=== PATIENT | male | born 1935 | race Caucasian/White ===

== ENCOUNTER 2022-08-06 05:20 | Emergency (ER) | payer MEDICARE, SELFPAY ==
--- NOTE | ~2022-08-06 | CT_ITS ---
EXAMINATION: CT brain wo con DATE: 08/06/2022 05:55 INDICATION: Minor head injury. TECHNIQUE: Computed tomography (CT) of the head was performed without intravenous contrast. The mA wa s adjusted according to patient size. Iterative reconstruction technique was employed. The dose-lengt h product was 681.00 mGy-cm. COMPARISON: None FINDINGS: There are scattered areas of low attenuation in the cerebral white matter, which is within normal limits for the patient's age. There is no intracranial hemorrhage, acute infarction, or abnorm al intracranial mass lesion. The ventricles are normal in size. There are likely changes of ocular le ns replacement surgeries. There are changes of left-sided scleral banding procedure. There is mild mu cosal thickening in the paranasal sinuses. There is a small right mastoid effusion. There is cerumen in the external auditory canals. IMPRESSION: 1. Normal aging brain. Reviewed, dictated and finalized at location A. IMPRESSION: 1. Normal aging brain.
[2022-08-06 05:34] VITALS: BP 151/70; PULSE 58; RESP 20; TEMP 36.8; O2SAT 100
--- NOTE | 2022-08-06 05:34 | ECG_ITS ---
Measurements Intervals Strong Rate: 61 P: 72 W[place]: 195 QRS: 79 QRSD: 125 T: 18 QT: 420 QTc: 425 Interpretive Statements SINUS RHYTHM RIGHT BUNDLE BRANCH BLOCK BASELINE ARTIFACT- I, II ABNORMAL ECG NO PREVIOUS ECG AVAILABLE FOR COMPARISON Electronically Signed On 08-07-2022 8:37:20 CDT by Blaze Macedo D.O.
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
[2022-08-06 05:49] LABS: Basophils Percent Auto 0.6 % (0.2-1.2); Eosinophils Absolute Auto 0.1 K/mm3 (0-0.3); Eosinophils Percent Auto 1.9 % (0-4.4); Hematocrit 35.4 % (42.0-52.0); Hemoglobin 11.4 g/dL (14.0-18.0); Immature Granulocyte Absolute 0.03 K/mm3 (0.00-0.031); Immature Granulocyte Percent A 0.6 % (0-0.5); Lymphocytes Absolute Auto 1.07 K/mm3 (0.9-3.2); Lymphocytes Percent Auto 20.5 % (18.3-44.2); Mean Corpuscular HGB Conc 32.2 g/dl (32-36); Mean Corpuscular Hemoglobin 30.6 pg (26-34); Mean Corpuscular Volume 94.9 fl (80-100); Mean Platelet Volume 9.8 fl (7.4-10.4); Monocytes Absolute Auto 0.5 K/mm3 (0.1-0.6); Monocytes Percent Auto 10.2 % (2.6-8.5); Neutrophils Absolute Auto 3.5 K/mm3 (1.3-6.7); Neutrophils Percent Auto 66.2 % (45.5-73.1); Platelet Count Result 201 k/mm3 (150-375); Red Blood Count 3.73 M/mm3 (4.6-6.20); Red Cell Distribution Width 13.4 % (11.5-14.5); White Blood Count 5.2 K/mm3 (4.5-10.0)
[2022-08-06 05:55] VITALS: BP 159/70; PULSE 65; RESP 18; O2SAT 100
[2022-08-06 06:00] VITALS: BP 155/69; PULSE 59; RESP 20; O2SAT 100
[2022-08-06 06:00] LABS: Anion Gap 5 mmol/L (8-16); Blood Urea Nitrogen 28 mg/dL (9-20); Calcium 8.9 mg/dL (8.4-10.2); Carbon Dioxide 31 mmol/L (22-30); Chloride 104 mmol/L (98-107); Estimated Glomerular Filt Rate > 60; Glucose 99 mg/dL (65-110); Potassium 3.4 mmol/L (3.4-5.0); Sodium 140 mmol/L (137-145)
[2022-08-06 06:15] VITALS: BP 149/69; PULSE 55; RESP 20; O2SAT 100
[2022-08-06 06:43] VITALS: BP 154/71; PULSE 57; RESP 18; O2SAT 100
== END 2022-08-06 07:00 | disposition home or self-care (01) ==
PROVIDERS: Emergency Provider Emergency Medicine; PCP Family Medicine
DX: S50.312A Abrasion of left elbow, initial encounter (principal); F03.90 Unspecified dementia, unspecified severity, without behavioral disturbance, psychotic disturbance, mood disturbance, and anxiety; I45.10 Unspecified right bundle-branch block; W19.XXXA Unspecified fall, initial encounter
CPT/HCPCS: 36415; 70450; 80048; 85025; 93005; 99284

== ENCOUNTER 2022-08-09 07:00 | Inpatient (IN) | payer MEDICARE, SELFPAY ==
--- NOTE | ~2022-08-09 | CT_ITS ---
EXAMINATION: CT brain wo con DATE: 08/09/2022 07:44 INDICATION: Head injury. Dizziness. TECHNIQUE: Computed tomography (CT) of the head was performed without intravenous contrast. The mA wa s adjusted according to patient size. Iterative reconstruction technique was employed. The dose-lengt h product was 681.00 mGy-cm. COMPARISON: Head CT 08/06/2022 FINDINGS: There are scattered areas of low attenuation in the cerebral white matter, which is within normal limits for the patient's age. There is no intracranial hemorrhage, acute infarction, or abnorm al intracranial mass lesion. The ventricles are normal in size. There is mild mucosal thickening in t he paranasal sinuses. There are likely changes of ocular lens replacement surgeries. There are change s of left-sided scleral banding procedure. There is a right mastoid effusion. There is cerumen in the external auditory canals. IMPRESSION: 1. Normal aging brain. Reviewed, dictated and finalized at location A. IMPRESSION: 1. Normal aging brain.
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
--- NOTE | ~2022-08-09 | XR_ITS ---
EXAMINATION: XR ribs LT 2V w CXR 2V DATE: 08/09/2022 08:11 INDICATION: Dizziness and cough. TECHNIQUE: Frontal and lateral views of the chest on 4 radiographs and 2 views on 3 radiographs of th e left ribs were obtained. COMPARISON: None. FINDINGS: CHEST TWO VIEWS: There are airspace opacities at the lung bases, left worse than right. There may be a small left pleural effusion. No pneumothorax. Skinfolds overlie left hemithorax. The heart size is normal. There is electronic implant in left anterior chest wall. LEFT RIBS: There is no rib fracture. IMPRESSION: 1. Airspace opacities at the lung bases, left worse than right, consistent with atelectasis versus pn eumonia. 2. Possible small left pleural effusion. 3. No rib fracture. Reviewed, dictated and finalized at location A. IMPRESSION: 1. Airspace opacities at the lung bases, left worse than right, consistent with atelectasis versus pneumonia. 2. Possible small left pleural effusion. 3. No rib fracture.
--- NOTE | ~2022-08-09 | XR_ITS ---
EXAM: XR shoulder RT min 2V DATE: 08/14/2022 18:00 HISTORY: pain s/p fall . COMPARISON: None available. FINDINGS: Normal mineralization. No fracture or dislocation. No lytic or blastic lesion. Degenerativ e change at the AC joint and glenohumeral joint. No erosion or periosteal change. Soft tissues within normal limits. IMPRESSION: No acute osseous finding in the right shoulder. Reviewed, dictated and finalized at location K.
--- NOTE | ~2022-08-09 | US_ITS ---
EXAMINATION: US venous doppler [facility] DATE: 08/10/2022 10:57 INDICATION: lower extremity edema . TECHNIQUE: Grayscale images without and with compression and Doppler images of the bilateral lower ex tremity veins were obtained. COMPARISON: None FINDINGS: The right common femoral vein, profunda (deep) femoral vein, femoral vein, popliteal vein, peroneal v ein, posterior tibial veins, gastrocnemius vein, and greater saphenous vein are patent. The left common femoral vein, profunda femoral vein, femoral vein, popliteal vein, peroneal vein, pos terior tibial veins, gastrocnemius vein, and greater saphenous vein are patent. IMPRESSION: 1. Patent bilateral lower extremity veins. No evidence of deep venous thrombosis. Reviewed, dictated and finalized at location K. IMPRESSION: 1. Patent bilateral lower extremity veins. No evidence of deep venous thrombos is.
--- NOTE | 2022-08-09 07:02 | ECG_ITS ---
Measurements Intervals [place] Rate: 62 P: 38 AL: 248 QRS: 78 QRSD: 140 T: 25 QT: 441 QTc: 451 Interpretive Statements SINUS RHYTHM WITH FIRST DEGREE AV BLOCK ATRIAL PREMATURE COMPLEX RIGHT BUNDLE BRANCH BLOCK BASELINE ARTIFACT- I, II, III, AVR, AVL, AVF, V1-V3 ABNORMAL ECG COMPARED TO ECG 08/06/2022 05:34:27 FIRST DEGREE AV BLOCK NOW PRESENT Electronically Signed On 08-09-2022 7:09:14 CDT by Blaze Macedo D.O.
[2022-08-09 07:03] VITALS: BP 171/86; PULSE 59; RESP 18; TEMP 36.5; O2SAT 97
--- NOTE | 2022-08-09 07:12 | ED.GENADULT ---
HPI - General Adult General Chief complaint: Dizziness Stated complaint: fall, dizzy History of Present Illness HPI narrative: 86-year-old male presenting to the emergency department for dizziness and a ground-level fall. Patient does have frequent falls. Patient does have dementia at baseline. Patient states he had just gotten out of bed and was walking and found him sitting on the floor. Patient states he did fall but is unsure if he hit his head. Patient does complain of left rib pain. Patient denies any other pain or complaint. Related Data Home Medications Medication Instructions Recorded Confirmed amlodipine 2.5 mg tablet 2.5 mg PO DAILY 08/09/22 08/09/22 aspirin 81 mg chewable tablet 80 mg PO DAILY 08/09/22 08/09/22 losartan 100 100.25 tablet PO DAILY 08/09/22 08/09/22 mg-hydrochlorothiazide 12.5 mg tablet simvastatin 80 mg tablet 40 mg PO DAILY 08/09/22 08/09/22 Allergies Allergy/AdvReac Type Severity Reaction Status Date / Time No Known Allergies Allergy Verified 08/09/22 07:26 Review of Systems Review of Systems: CONSTITUTIONAL: Denies fever, chills, or sweats. EYES: Denies visual changes, redness, or discharge. ENT: Denies rhinorrhea, congestion, sore throat, or otalgia. CARDIOVASCULAR: Left-sided chest wall pain RESPIRATORY: Denies cough or dyspnea. GASTROINTESTINAL: Denies abdominal pain, nausea, vomiting, or diarrhea. GENITOURINARY: Denies dysuria or hematuria. SKIN: Denies rash or itching. MUSCULOSKELETAL: Denies back pain, joint pain, or myalgia. NEUROLOGIC: At neuro baseline [facility] Social History Social History Additional smoking assessment comments: unknown Spiritual care concerns: No Exam Narrative: APPEARANCE: Well appearing, no pain, no distress, well-nourished. HEAD: normocephalic, atraumatic. EYES: PERRLA/EOMI, conjunctivae clear. NOSE: Normal no drainage EARS:TMS clear with good light reflex. THROAT: Pharynx clear, no exudate. NECK: Supple. No adenopathy, no masses. RESPIRATORY: Airway patent, respirations nonlabored. Clear to auscultation bilaterally, no rales, rhonchi, wheezing. CARDIOVASCULAR: Regular rate and rhythm without murmurs rubs or gallops. ABDOMINAL: Soft, nontender, nondistended, normal bowel sounds MUSCULOSKELETAL: Moves all extremities. Strength/ROM intact, No edema, No calf tenderness. NEURO: Alert. Cranial nerves II through XII intact. Grossly intact SKIN: Warm, dry. Normal Color Course Course Emergency Course: X-ray was concerning for pneumonia. No evidence of a rib fracture. Patient's pain may be secondary to an underlying pneumonia. Due to patient's altered mental status patient was started on antibiotics and admitted to the hospital. Case was discussed with hospitalist and patient was accepted admission. Vital Signs Vital signs: Vital Signs Temperature 97.7 F 08/09/22 07:03 Pulse Rate 59 L 08/09/22 07:03 Respiratory Rate 18 08/09/22 07:03 Blood Pressure 171/86 H 08/09/22 07:03 Pulse Oximetry 97 08/09/22 07:03 Temperature 98.0 F 08/09/22 13:49 Pulse Rate 53 L 08/09/22 13:49 Respiratory Rate 16 08/09/22 13:49 Blood Pressure 168/61 H 08/09/22 13:49 Pulse Oximetry 100 08/09/22 13:49 Medical Decision Making Vital Signs Vital Signs: Vital Signs Temperature 97.7 F 08/09/22 07:03 Pulse Rate 59 L 08/09/22 07:03 Respiratory Rate 18 08/09/22 07:03 Blood Pressure 171/86 H 08/09/22 07:03 Pulse Oximetry 97 08/09/22 07:03 Temperature 98.0 F 08/09/22 13:49 Pulse Rate 53 L 08/09/22 13:49 Respiratory Rate 16 08/09/22 13:49 Blood Pressure 168/61 H 08/09/22 13:49 Pulse Oximetry 100 08/09/22 13:49 Lab Data Lab results reviewed: Yes I reviewed the patient's lab results. Result diagrams: 08/09/22 07:10 08/09/22 07:10 Labs: Lab Results 08/09/22 08/09/22 08/09/22 Range/Units 07:10 07:10 07:29 WBC 5.3 (4.5-10.0) K/mm3 RBC 3.87
[2022-08-09 07:19] LABS: Basophils Percent Auto 0.6 % (0.2-1.2); Eosinophils Absolute Auto 0.1 K/mm3 (0-0.3); Eosinophils Percent Auto 1.9 % (0-4.4); Hematocrit 36.3 % (42.0-52.0); Hemoglobin 11.9 g/dL (14.0-18.0); Immature Granulocyte Absolute 0.03 K/mm3 (0.00-0.031); Immature Granulocyte Percent A 0.6 % (0-0.5); Lymphocytes Absolute Auto 0.72 K/mm3 (0.9-3.2); Lymphocytes Percent Auto 13.5 % (18.3-44.2); Mean Corpuscular HGB Conc 32.8 g/dl (32-36); Mean Corpuscular Hemoglobin 30.7 pg (26-34); Mean Corpuscular Volume 93.8 fl (80-100); Mean Platelet Volume 9.9 fl (7.4-10.4); Monocytes Absolute Auto 0.5 K/mm3 (0.1-0.6); Monocytes Percent Auto 9.2 % (2.6-8.5); Neutrophils Percent Auto 74.2 % (45.5-73.1); Platelet Count Result 192 k/mm3 (150-375); Red Blood Count 3.87 M/mm3 (4.6-6.20); Red Cell Distribution Width 13.4 % (11.5-14.5); White Blood Count 5.3 K/mm3 (4.5-10.0)
[2022-08-09 07:31] LABS: Alanine Aminotransferase 18 U/L (6-50); Albumin Level 3.3 g/dL (3.5-5.1); Alkaline Phosphatase 72 U/L (38-126); Anion Gap 6 mmol/L (8-16); Aspartate Amino Transferase 23 U/L (17-59); Bilirubin,Total 0.5 mg/dL (0.2-1.3); Blood Urea Nitrogen 25 mg/dL (9-20); Carbon Dioxide 27 mmol/L (22-30); Chloride 107 mmol/L (98-107); Estimated Glomerular Filt Rate > 60; Glucose 90 mg/dL (65-110); Potassium 3.3 mmol/L (3.4-5.0); Sodium 140 mmol/L (137-145)
[2022-08-09] MEDS: POTASSIUM CHLORIDE 20 MEQ PACKET (FOR LIQUID) 40 MEQ PO (08:04)
[2022-08-09 08:18] LABS: SARS-CoV-2 RNA PCR Negative
[2022-08-09 08:37] LABS: Appearance Urine Clear (Clear); Bilirubin Urine Negative (Negative); Blood Urine 1+ (Negative); Color Urine Yellow (Yellow); Glucose Urine UA Negative (Negative); Ketones Urine Negative (Negative); Leukocyte Esterase Ur Negative LEU/UL (Negative); Nitrate Urine Negative (Negative); Protein Urine Negative (Negative)
[2022-08-09 08:57] VITALS: BP 173/80; PULSE 55
[2022-08-09 08:58] VITALS: BP 176/68; BP 176/75; PULSE 57; PULSE 71; RESP 18; O2SAT 98
--- NOTE | 2022-08-09 08:58 | PC.NURSE ---
Patient refusing to swallow potassium in water, spitting out medications and holding in mouth without swallowing. patient's reports Sometimes he is difficult, but he can swallow.
[2022-08-09 09:03] LABS: Mucus Urine Rare /lpf; Squamous Epithelial Cell Urine Rare /hpf (Few); WBC Urine 0-3 /hpf
[2022-08-09 09:04] LABS: Add Urine Microscopic? YES
[2022-08-09 10:38] VITALS: BP 160/81; PULSE 60; RESP 18; O2SAT 98
--- NOTE | 2022-08-09 11:12 | PCOTNOTE ---
Attempted to see pt. for occupational therapy evaluation. Per nursing hold evaluation until later time, ad pt. just arrived on floor and is significantly confused. Spoke with who agreed.Will follow.
--- NOTE | 2022-08-09 13:15 | PC.NURSE ---
This patient, Jackson Live, was admitted to Medical Room 345-01. Patient/family oriented to hospital policies and general routines including ID bracelet, bed and alarms, visiting hours, pain management, procedures, bathroom and other care routines, personal items, smoking policy, room service/diet, and visiting hours. Information on how to activate the Rapid Response Team has been discussed. Patient/Family are encouraged to report perceived risks to care and to ask questions if they do not understand what they are told or what they should do.
[2022-08-09 13:49] VITALS: BP 168/61; PULSE 53; RESP 16; TEMP 36.7; O2SAT 100
--- NOTE | 2022-08-09 18:40 | PM.IMHP ---
H&P: HPI History of Present Illness Date/Time: 08/09/22 18:40 Chief Complaint: recurrent falls Narrative: this is an 86-year-old male who presents to the ED after dizziness and ground level fall. He has a history of recurrent fall and was recently in the ER for the similar situation. He is a poor historian has an underlying dementia and not able to describe history of present illness. According to the medical record he had gotten out of the bed and was walking when his found him sitting on the floor. It is unclear whether he hit his head or not. He complained of left rib pain. He denies any other complaints currently. He denies any chest pain or shortness of breath. Workup had revealed some opacities in a chest x-ray urine had some blood otherwise negative for urine infection. When asked she does endorse he has cough however this is unreliable. His family is not at bedside currently given recurrent fall history is admitted for further evaluation and management and possibly placement due to his severe underlying dementia. Review of Systems Review of Systems: ROS unobtainable: Yes unobtainable due to medical condition and unobtainable due to mental status PMFSH Social History Social History Additional smoking assessment comments: unknown Spiritual care concerns: No Meds Home Medications and Allergies Home Medications Medication Instructions Recorded Confirmed Type amlodipine 2.5 mg tablet 2.5 mg PO DAILY 08/09/22 08/09/22 History aspirin 81 mg chewable tablet 80 mg PO DAILY 08/09/22 08/09/22 History losartan 100 100.25 tablet PO DAILY 08/09/22 08/09/22 History mg-hydrochlorothiazide 12.5 mg tablet simvastatin 80 mg tablet 40 mg PO DAILY 08/09/22 08/09/22 History Allergies Allergy/AdvReac Type Severity Reaction Status Date / Time No Known Allergies Allergy Verified 08/09/22 07:26 Vital Signs Vital Signs - 24 hr 08/09/22 07:03 08/09/22 07:03 08/09/22 08:57 Temperature 97.7 F Pulse Rate 59 L 59 L 55 L Respiratory Rate 18 Blood Pressure 171/86 H 173/80 H Pulse Oximetry 97 08/09/22 08:58 08/09/22 08:58 08/09/22 10:38 Temperature Pulse Rate 71 57 L 60 Respiratory Rate 18 18 Blood Pressure 176/68 H 176/75 H 160/81 H Pulse Oximetry 98 98 08/09/22 13:49 Temperature 98.0 F Pulse Rate 53 L Respiratory Rate 16 Blood Pressure 168/61 H Pulse Oximetry 100 Exam Narrative: APPEARANCE: Well appearing, no pain, no distress, well-nourished. HEAD: normocephalic, atraumatic. EYES: PERRLA/EOMI, conjunctivae clear. NOSE: Normal no drainage THROAT: Pharynx clear, no exudate. NECK: Supple. No adenopathy, no masses. RESPIRATORY: Airway patent, respirations nonlabored. Clear to auscultation bilaterally, no rales, rhonchi, wheezing. CARDIOVASCULAR: Regular rate and rhythm without murmurs rubs or gallops. ABDOMINAL: Soft, nontender, nondistended, normal bowel sounds MUSCULOSKELETAL: Moves all extremities. Strength/ROM intact, Bilateral lower extremity edema noted pitting, No calf tenderness. NEURO: Alert. oriented to self but not to time and place. Cranial nerves II through XII intact.? Grossly intact SKIN: Warm, dry. Normal Color H&P: Results Labs Labs: Short CBC 08/09/22 Range/Units 07:10 WBC 5.3 (4.5-10.0) K/mm3 Hgb 11.9 L (14.0-18.0) g/dL Hct 36.3 L (42.0-52.0) % Plt Count 192 (150-375) k/mm3 BMP 08/09/22 07:10 Sodium 140 Potassium 3.3 L Chloride 107 Carbon Dioxide 27 BUN 25 H Creatinine 0.80 Glucose 90 Calcium 8.0 L Liver Function 08/09/22 Range/Units 07:10 Total Bilirubin 0.5 (0.2-1.3) mg/dL AST 23 (17-59) U/L ALT 18 (6-50) U/L Alkaline Phosphatase 72 (38-126) U/L Albumin 3.3 L (3.5-5.1) g/dL Urine 08/09/22 Range/Units 08:24 Urine Color Yellow (Yellow) Urine Appearance Clear (Clear) Urine pH 7.0 (5.0-9.0) Ur Specific [place] 1.020 (1.001-1.035) Urine Protein Negat
[2022-08-09 19:28] LABS: Creatine Kinase 79 U/L (55-170)
[2022-08-09 20:58] VITALS: BP 121/55; PULSE 64; RESP 16; TEMP 36.7; O2SAT 97
[2022-08-10 06:00] VITALS: BP 170/73; PULSE 60; RESP 18; TEMP 36.9; O2SAT 99
[2022-08-10] MEDS: amLODIPine BESYLATE 2.5 MG TABLET PO (09:16)
[2022-08-10] MEDS: ENOXAPARIN 40 MG/0.4 ML SYRINGE SUB-Q (09:16)
[2022-08-10] MEDS: SIMVASTATIN 20 MG TABLET 40 MG PO (09:17)
[2022-08-10] MEDS: ASPIRIN 81 MG CHEWABLE TABLET PO (09:17)
[2022-08-10] MEDS: LOSARTAN POTASSIUM 100 MG TABLET PO (09:17)
[2022-08-10] MEDS: hydroCHLOROthiazide 12.5 MG CAPSULE PO (09:17)
--- NOTE | 2022-08-10 14:42 | PM.IMPN ---
Progress Note: A&P Assessment and Plan (1) Pneumonia: Code(s): J18.9 - Pneumonia, unspecified organism Status: Acute (2) Pain in rib: Code(s): R07.81 - Pleurodynia Status: Acute (3) Encephalopathy: Code(s): G93.40 - Encephalopathy, unspecified Status: Acute (4) Recurrent falls: Code(s): R29.6 - Repeated falls Status: Acute (5) Hypertension: Code(s): I10 - Essential (primary) hypertension Status: Acute (6) Hyperlipidemia: Code(s): E78.5 - Hyperlipidemia, unspecified Status: Acute Plan # acute encephalopathy unclear baseline but he has severe dementia at baseline. CT head with normal aging. Does have pneumonia. WBC count is normal. Continue IV antibiotics and treatment , likely metabolic encephalopathy # bilateral pneumonia IV ceftriaxone and azithromycin pancultured in the ER. Cultures no growth to date # recurrent falls PT OT to see likely needs placement # bilateral lower extremity edema likely venous will check venous duplex to rule out DVT # severe dementia # hypertension resume home medication # hyperlipidemia statin # code status full code # DVT prophylaxis Lovenox Subjective Date/time seen: 08/10/22 14:42 Interval history: HPI:?this is an 86-year-old male who presents to the ED after dizziness and ground level fall.? He has a history of recurrent fall and was recently in the ER for the similar situation.? He is a poor historian has an underlying dementia and not able to describe history of present illness.? According to the medical record he had gotten out of the bed and was walking when his found him sitting on the floor.? It is unclear whether he hit his head or not.? He complained of left rib pain.? He denies any other complaints currently.? He denies any chest pain or shortness of breath.? Workup had revealed some opacities in a chest x-ray urine had some blood otherwise negative for urine infection.? When asked she does endorse he has cough however this is unreliable.? His family is not at bedside currently given recurrent fall history is admitted for further evaluation and management and possibly placement due to his severe underlying dementia. 08/10/2022 no overnight events. He seemed confused. Does not remember me from yesterday. Denies any new complaint. Review of Systems Review of Systems: ROS unobtainable: Yes unobtainable due to mental status Exam Narrative: APPEARANCE: Well appearing, no pain, no distress, well-nourished. HEAD: normocephalic, atraumatic. EYES: PERRLA/EOMI, conjunctivae clear. NOSE: Normal no drainage THROAT: Pharynx clear, no exudate. NECK: Supple. No adenopathy, no masses. RESPIRATORY: Airway patent, respirations nonlabored. Clear to auscultation bilaterally, no rales, rhonchi, wheezing. CARDIOVASCULAR: Regular rate and rhythm without murmurs rubs or gallops. ABDOMINAL: Soft, nontender, nondistended, normal bowel sounds MUSCULOSKELETAL: Moves all extremities. Strength/ROM intact, Bilateral lower extremity edema noted pitting, No calf tenderness. NEURO: Alert. Confused looking, oriented to self but not to time and place. Cranial nerves II through XII intact.? Grossly intact SKIN: Warm, dry. Normal Color Objective Data Vital Signs Vital Signs: Vital Signs - 24 hr 08/09/22 20:32 08/09/22 20:58 08/10/22 06:00 Temperature 98.1 F 98.4 F Pulse Rate 64 60 Respiratory Rate 16 18 Blood Pressure 121/55 L 170/73 H Pulse Oximetry 97 99 Oxygen Delivery Room Air 08/10/22 10:58 08/10/22 13:07 Temperature Pulse Rate Respiratory Rate Blood Pressure Pulse Oximetry Oxygen Delivery Room Air Room Air Intake/Output Intake/Output: Intake & Output 08/07/22 08/08/22 08/09/22 08/10/22 23:59 23:59 23:59 23:59 Intake Total 1020 480 Output Total 400 Balance 620 480 Meds/Results Medications: Active Medications Generic Name Dose Route Start Last Admin Trade Nam
[2022-08-10 16:28] LABS: Basophils Percent Auto 0.4 % (0.2-1.2); Eosinophils Absolute Auto 0.2 K/mm3 (0-0.3); Eosinophils Percent Auto 3.2 % (0-4.4); Hematocrit 37.5 % (42.0-52.0); Immature Granulocyte Absolute 0.01 K/mm3 (0.00-0.031); Immature Granulocyte Percent A 0.2 % (0-0.5); Lymphocytes Absolute Auto 1.14 K/mm3 (0.9-3.2); Lymphocytes Percent Auto 21.6 % (18.3-44.2); Mean Corpuscular Hemoglobin 30.3 pg (26-34); Mean Corpuscular Volume 94.7 fl (80-100); Mean Platelet Volume 9.8 fl (7.4-10.4); Monocytes Absolute Auto 0.6 K/mm3 (0.1-0.6); Monocytes Percent Auto 11.7 % (2.6-8.5); Neutrophils Absolute Auto 3.3 K/mm3 (1.3-6.7); Neutrophils Percent Auto 62.9 % (45.5-73.1); Platelet Count Result 198 k/mm3 (150-375); Red Blood Count 3.96 M/mm3 (4.6-6.20); Red Cell Distribution Width 13.2 % (11.5-14.5); White Blood Count 5.3 K/mm3 (4.5-10.0)
[2022-08-10 16:42] LABS: Alanine Aminotransferase 18 U/L (6-50); Albumin Level 3.4 g/dL (3.5-5.1); Alkaline Phosphatase 74 U/L (38-126); Anion Gap 8 mmol/L (8-16); Aspartate Amino Transferase 28 U/L (17-59); Bilirubin,Total 0.8 mg/dL (0.2-1.3); Blood Urea Nitrogen 19 mg/dL (9-20); Calcium 8.9 mg/dL (8.4-10.2); Carbon Dioxide 30 mmol/L (22-30); Chloride 102 mmol/L (98-107); Estimated Glomerular Filt Rate > 60; Glucose 95 mg/dL (65-110); Potassium 3.7 mmol/L (3.4-5.0); Sodium 140 mmol/L (137-145)
[2022-08-10 20:24] VITALS: BP 133/71; PULSE 68; RESP 20; TEMP 36.8; O2SAT 98
[2022-08-11 05:38] VITALS: BP 121/61; PULSE 72; RESP 20; TEMP 36.7; O2SAT 97
[2022-08-11 08:27] LABS: Basophils Absolute Auto 0.1 K/mm3 (0.0-0.1); Basophils Percent Auto 0.7 % (0.2-1.2); Eosinophils Absolute Auto 0.1 K/mm3 (0-0.3); Hemoglobin 13.3 g/dL (14.0-18.0); Immature Granulocyte Absolute 0.02 K/mm3 (0.00-0.031); Immature Granulocyte Percent A 0.3 % (0-0.5); Lymphocytes Percent Auto 19.6 % (18.3-44.2); Mean Corpuscular HGB Conc 34.1 g/dl (32-36); Mean Corpuscular Hemoglobin 31.1 pg (26-34); Mean Corpuscular Volume 91.1 fl (80-100); Monocytes Absolute Auto 0.7 K/mm3 (0.1-0.6); Monocytes Percent Auto 9.6 % (2.6-8.5); Neutrophils Absolute Auto 4.9 K/mm3 (1.3-6.7); Neutrophils Percent Auto 68.8 % (45.5-73.1); Platelet Count Result 252 k/mm3 (150-375); Red Blood Count 4.28 M/mm3 (4.6-6.20); Red Cell Distribution Width 13.2 % (11.5-14.5); White Blood Count 7.2 K/mm3 (4.5-10.0)
[2022-08-11 08:39] LABS: Alanine Aminotransferase 21 U/L (6-50); Albumin Level 4.1 g/dL (3.5-5.1); Alkaline Phosphatase 79 U/L (38-126); Anion Gap 12 mmol/L (8-16); Aspartate Amino Transferase 34 U/L (17-59); Blood Urea Nitrogen 18 mg/dL (9-20); Carbon Dioxide 28 mmol/L (22-30); Chloride 102 mmol/L (98-107); Estimated Glomerular Filt Rate > 60; Glucose 104 mg/dL (65-110); Magnesium 1.9 mg/dL (1.6-2.3); Potassium 4.5 mmol/L (3.4-5.0); Sodium 142 mmol/L (137-145)
[2022-08-11] MEDS: hydroCHLOROthiazide 12.5 MG CAPSULE PO (09:40)
[2022-08-11] MEDS: ENOXAPARIN 40 MG/0.4 ML SYRINGE SUB-Q (09:40)
[2022-08-11] MEDS: amLODIPine BESYLATE 2.5 MG TABLET PO (09:40)
[2022-08-11] MEDS: LOSARTAN POTASSIUM 100 MG TABLET PO (09:40)
[2022-08-11] MEDS: SIMVASTATIN 20 MG TABLET 40 MG PO (09:41)
[2022-08-11] MEDS: ASPIRIN 81 MG CHEWABLE TABLET PO (09:41)
[2022-08-11 13:00] VITALS: BP 120/83; PULSE 84; RESP 18; TEMP 36.3; O2SAT 99
--- NOTE | 2022-08-11 14:48 | PM.IMPN ---
Progress Note: A&P Assessment and Plan (1) Pneumonia: Code(s): J18.9 - Pneumonia, unspecified organism Status: Acute (2) Pain in rib: Code(s): R07.81 - Pleurodynia Status: Acute (3) Encephalopathy: Code(s): G93.40 - Encephalopathy, unspecified Status: Acute (4) Recurrent falls: Code(s): R29.6 - Repeated falls Status: Acute (5) Hypertension: Code(s): I10 - Essential (primary) hypertension Status: Acute (6) Hyperlipidemia: Code(s): E78.5 - Hyperlipidemia, unspecified Status: Acute Plan # acute encephalopathy unclear baseline but he has severe dementia at baseline. CT head with normal aging. Does have pneumonia. WBC count is normal. Continue IV antibiotics and treatment , likely metabolic encephalopathy. Check brain MRI and EEG. Will add Zyprexa diet this at night. Maintain sleep-wake cycle # bilateral pneumonia IV ceftriaxone and azithromycin pancultured in the ER. Cultures no growth to date # recurrent falls PT OT to see likely needs placement # bilateral lower extremity edema likely venous Insufficiency. Venous duplex negative for DVT . # severe dementia # hypertension resume home medication # hyperlipidemia statin # code status full code # DVT prophylaxis Lovenox Subjective Date/time seen: 08/11/22 14:48 Interval history: HPI:?this is an 86-year-old male who presents to the ED after dizziness and ground level fall.? He has a history of recurrent fall and was recently in the ER for the similar situation.? He is a poor historian has an underlying dementia and not able to describe history of present illness.? According to the medical record he had gotten out of the bed and was walking when his found him sitting on the floor.? It is unclear whether he hit his head or not.? He complained of left rib pain.? He denies any other complaints currently.? He denies any chest pain or shortness of breath.? Workup had revealed some opacities in a chest x-ray urine had some blood otherwise negative for urine infection.? When asked she does endorse he has cough however this is unreliable.? His family is not at bedside currently given recurrent fall history is admitted for further evaluation and management and possibly placement due to his severe underlying dementia. 08/10/2022 no overnight events. He seemed confused. Does not remember me from yesterday. Denies any new complaint. 08/11/2022 overnight events noted with confusion ongoing. at bedside discussed with her. Ongoing confusion as the norm for him. Was able to do his ADLs. Currently not able to comprehend to be able to do any of those activities. Review of Systems Review of Systems: ROS unobtainable: Yes unobtainable due to mental status Exam Narrative: APPEARANCE: Well appearing, no pain, no distress, well-nourished. HEAD: normocephalic, atraumatic. EYES: PERRLA/EOMI, conjunctivae clear. NOSE: Normal no drainage THROAT: Pharynx clear, no exudate. NECK: Supple. No adenopathy, no masses. RESPIRATORY: Airway patent, respirations nonlabored. Clear to auscultation bilaterally, no rales, rhonchi, wheezing. CARDIOVASCULAR: Regular rate and rhythm without murmurs rubs or gallops. ABDOMINAL: Soft, nontender, nondistended, normal bowel sounds MUSCULOSKELETAL: Moves all extremities. Strength/ROM intact, Bilateral lower extremity edema noted pitting, No calf tenderness. NEURO: Alert. Confused , oriented to self but not to time and place. Cranial nerves II through XII intact.? Grossly intact SKIN: Warm, dry. Normal Color Objective Data Vital Signs Vital Signs: Vital Signs - 24 hr 08/10/22 20:22 08/10/22 20:24 08/11/22 05:38 Temperature 98.3 F 98.1 F Pulse Rate 68 72 Respiratory Rate 20 20 Blood Pressure 133/71 121/61 Pulse Oximetry 98 97 Oxygen Delivery Room Air 08/11/22 09:45 08/11/22 13:00 Temperature 97.3 F L Pulse Rate 84 Respiratory Rate 18 Blood Pressure 1
[2022-08-11 19:40] VITALS: BP 154/72; PULSE 70; RESP 20; TEMP 36.4; O2SAT 95
[2022-08-11] MEDS: OLANZapine DISPERTAB 5 MG PO (21:54)
[2022-08-12 05:51] VITALS: BP 144/79; PULSE 77; RESP 20; TEMP 36.4; O2SAT 94
[2022-08-12] MEDS: ENOXAPARIN 40 MG/0.4 ML SYRINGE SUB-Q (09:40)
[2022-08-12] MEDS: amLODIPine BESYLATE 2.5 MG TABLET PO (09:41)
[2022-08-12] MEDS: LOSARTAN POTASSIUM 100 MG TABLET PO (09:41)
[2022-08-12] MEDS: hydroCHLOROthiazide 12.5 MG CAPSULE PO (09:41)
[2022-08-12] MEDS: SIMVASTATIN 20 MG TABLET 40 MG PO (09:41)
[2022-08-12] MEDS: ASPIRIN 81 MG CHEWABLE TABLET PO (09:41)
--- NOTE | 2022-08-12 12:55 | PM.IMPN ---
Progress Note: A&P Assessment and Plan (1) Pneumonia: Code(s): J18.9 - Pneumonia, unspecified organism Status: Acute (2) Pain in rib: Code(s): R07.81 - Pleurodynia Status: Acute (3) Encephalopathy: Code(s): G93.40 - Encephalopathy, unspecified Status: Acute (4) Recurrent falls: Code(s): R29.6 - Repeated falls Status: Acute (5) Hypertension: Code(s): I10 - Essential (primary) hypertension Status: Acute (6) Hyperlipidemia: Code(s): E78.5 - Hyperlipidemia, unspecified Status: Acute Plan # acute encephalopathy unclear baseline but he has severe dementia at baseline. CT head with normal aging. Does have pneumonia. WBC count is normal. Continue IV antibiotics and treatment , likely metabolic encephalopathy. Check brain MRI and EEG. Added Zyprexa zydis at night. Maintain sleep-wake cycle # bilateral pneumonia IV ceftriaxone and azithromycin pancultured in the ER. Cultures no growth to date # recurrent falls PT OT to see likely needs placement # bilateral lower extremity edema likely venous Insufficiency. Venous duplex negative for DVT . # severe dementia # hypertension resume home medication # hyperlipidemia statin # code status full code # DVT prophylaxis Lovenox # disposition: needs placement however wants to take him back home. May need home health at discharge if stable will plan for discharge in the morning Subjective Date/time seen: 08/12/22 12:55 Interval history: HPI:?this is an 86-year-old male who presents to the ED after dizziness and ground level fall.? He has a history of recurrent fall and was recently in the ER for the similar situation.? He is a poor historian has an underlying dementia and not able to describe history of present illness.? According to the medical record he had gotten out of the bed and was walking when his found him sitting on the floor.? It is unclear whether he hit his head or not.? He complained of left rib pain.? He denies any other complaints currently.? He denies any chest pain or shortness of breath.? Workup had revealed some opacities in a chest x-ray urine had some blood otherwise negative for urine infection.? When asked she does endorse he has cough however this is unreliable.? His family is not at bedside currently given recurrent fall history is admitted for further evaluation and management and possibly placement due to his severe underlying dementia. 08/10/2022 no overnight events. He seemed confused. Does not remember me from yesterday. Denies any new complaint. 08/11/2022 overnight events noted with confusion ongoing. at bedside discussed with her. Ongoing confusion as the norm for him. Was able to do his ADLs. Currently not able to comprehend to be able to do any of those activities. 08/12/2022 slept overnight with Zyprexa. Looks better less confused however dementia and memory loss persist at his baseline. Work with therapy this morning discussed with the nursing staff. Review of Systems Review of Systems: ROS unobtainable: Yes unobtainable due to mental status Exam Narrative: APPEARANCE: Well appearing, no pain, no distress, well-nourished. HEAD: normocephalic, atraumatic. EYES: PERRLA/EOMI, conjunctivae clear. NOSE: Normal no drainage THROAT: Pharynx clear, no exudate. NECK: Supple. No adenopathy, no masses. RESPIRATORY: Airway patent, respirations nonlabored. Clear to auscultation bilaterally, no rales, rhonchi, wheezing. CARDIOVASCULAR: Regular rate and rhythm without murmurs rubs or gallops. ABDOMINAL: Soft, nontender, nondistended, normal bowel sounds MUSCULOSKELETAL: Moves all extremities. Strength/ROM intact, Bilateral lower extremity edema noted pitting, No calf tenderness. NEURO: Alert. Confused , oriented to self but not to time and place. Cranial nerves II through XII intact.? Grossly intact SKIN: Warm, dry. Normal Color Objective Data Vital Signs Vital
--- NOTE | 2022-08-12 13:37 | PCOTNOTE ---
Patient having EKG, then going for test. Patient not seen for OT this date.
[2022-08-12 15:56] VITALS: BP 149/63; PULSE 50; RESP 16; TEMP 36.4; O2SAT 97
[2022-08-12 20:00] VITALS: PULSE 50; RESP 16; O2SAT 97
[2022-08-12] MEDS: OLANZapine 2.5 MG TABLET PO (20:13)
[2022-08-12 22:00] VITALS: BP 120/65; PULSE 73; RESP 18; TEMP 36.9; O2SAT 98
[2022-08-13 05:29] LABS: Basophils Percent Auto 0.7 % (0.2-1.2); Eosinophils Absolute Auto 0.4 K/mm3 (0-0.3); Eosinophils Percent Auto 6.4 % (0-4.4); Hematocrit 40.7 % (42.0-52.0); Hemoglobin 13.5 g/dL (14.0-18.0); Immature Granulocyte Absolute 0.02 K/mm3 (0.00-0.031); Immature Granulocyte Percent A 0.3 % (0-0.5); Lymphocytes Absolute Auto 1.45 K/mm3 (0.9-3.2); Lymphocytes Percent Auto 23.8 % (18.3-44.2); Mean Corpuscular HGB Conc 33.2 g/dl (32-36); Mean Corpuscular Hemoglobin 30.3 pg (26-34); Mean Corpuscular Volume 91.3 fl (80-100); Mean Platelet Volume 9.6 fl (7.4-10.4); Monocytes Absolute Auto 0.7 K/mm3 (0.1-0.6); Monocytes Percent Auto 11.2 % (2.6-8.5); Neutrophils Absolute Auto 3.5 K/mm3 (1.3-6.7); Neutrophils Percent Auto 57.6 % (45.5-73.1); Platelet Count Result 241 k/mm3 (150-375); Red Blood Count 4.46 M/mm3 (4.6-6.20); Red Cell Distribution Width 12.9 % (11.5-14.5); White Blood Count 6.1 K/mm3 (4.5-10.0)
[2022-08-13 05:43] LABS: Alanine Aminotransferase 22 U/L (6-50); Albumin Level 3.8 g/dL (3.5-5.1); Alkaline Phosphatase 80 U/L (38-126); Anion Gap 12 mmol/L (8-16); Aspartate Amino Transferase 38 U/L (17-59); Bilirubin,Total 0.7 mg/dL (0.2-1.3); Blood Urea Nitrogen 20 mg/dL (9-20); Carbon Dioxide 31 mmol/L (22-30); Chloride 101 mmol/L (98-107); Estimated Glomerular Filt Rate > 60; Glucose 98 mg/dL (65-110); Magnesium 2.1 mg/dL (1.6-2.3); Potassium 3.8 mmol/L (3.4-5.0); Sodium 144 mmol/L (137-145)
--- NOTE | 2022-08-13 09:07 | PCPTNOTE ---
Attempted to see patient for PT at this time, however unable to see patient. Patient seemed agitated and refused to work with therapy. Patient very confused and reported he was tied up in a field, informed patient he is at the hospital and in bed. Patient continued to seem agitated and confused. Patient not appropriate for therapy at this time.
--- NOTE | 2022-08-13 09:30 | WPDNEUROLOGY ---
Neurology EEG Report General Information Date of Study: 08/12/22 TEST eeg DIAGNOSIS Dementia with confusion CONDITION OF RECORDING drowsy and sleep EEG NUMBER [id number] CLINICAL HISTORY patient confused and unable to give any history EEG DESCRIPTION background rhythm consists of low-voltage 8 to 10 hertz per 2nd alpha posteriorly for very brief periods admixed with low-voltage 15 to 18 hertz per 2nd beta and intermittent 6 to 7 hertz per 2nd theta activity. Bilateral sleep activity seen during sleep. Hyperventilation not done. Photic stimulation not done. Non paroxysmal. Nonfocal. Non lateralizing. IMPRESSION Abnormal record due to the absence of the normal background rhythm. Finding could be suggestive of underlying organic or metabolic encephalopathy. Considering the age of the patient possibility of the neuro degenerative process is likely. Clinical correlation recommended
[2022-08-13] MEDS: SIMVASTATIN 20 MG TABLET 40 MG PO (09:52)
[2022-08-13] MEDS: hydroCHLOROthiazide 12.5 MG CAPSULE PO (09:52)
[2022-08-13] MEDS: ENOXAPARIN 40 MG/0.4 ML SYRINGE SUB-Q (09:52)
[2022-08-13] MEDS: amLODIPine BESYLATE 2.5 MG TABLET PO (09:52)
[2022-08-13] MEDS: LOSARTAN POTASSIUM 100 MG TABLET PO (09:52)
[2022-08-13] MEDS: ASPIRIN 81 MG CHEWABLE TABLET PO (09:52)
--- NOTE | 2022-08-13 11:06 | PCOTNOTE ---
Attempted to see patient for OT this AM, patient uncooperative, confused, and refused any activity. Patient reports he wants to go home and was encouraged to participate to improve strength and wellbeing to d/c. Patient continued to refuse/
--- NOTE | 2022-08-13 12:41 | PM.DS ---
DS: Admitting Diagnosis Discharge Date 08/13/2022 Admitting Diagnosis recurrent falls DS: Discharge Diagnosis Discharge Diagnosis (1) Pneumonia: Code(s): J18.9 - Pneumonia, unspecified organism Status: Acute (2) Pain in rib: Code(s): R07.81 - Pleurodynia Status: Acute (3) Encephalopathy: Code(s): G93.40 - Encephalopathy, unspecified Status: Acute (4) Recurrent falls: Code(s): R29.6 - Repeated falls Status: Acute (5) Hypertension: Code(s): I10 - Essential (primary) hypertension Status: Acute (6) Hyperlipidemia: Code(s): E78.5 - Hyperlipidemia, unspecified Status: Acute DS: Summary Hospital Course Hospital Course: # acute encephalopathy unclear baseline but he has severe dementia at baseline. CT head with normal aging. Does have pneumonia per chest x-ray. WBC count is normal. Continue IV antibiotics and treatment , likely metabolic encephalopathy. MRI brain with normal aging. EEG abnormal due to absence of normal background rhythm. Findings suggestive of underlying organic or metabolic encephalopathy. Considering the age of possibility of neuro degenerative process is likely. Added Zyprexa zydis at night For agitation and sleep. Maintain sleep-wake cycle. He work with therapy and was moderate assist. It was recommended for him to go to a correction facility however his who is his primary caregiver adamant that they came home. I have tried to discuss with her risks with taking him home however she refuses to talk any further and becomes very disrespectful. His finished adequate course with azithromycin. He has not required any oxygen supplementation. Will continue antibiotic for pneumonia with cefdinir at discharge for 5 more days. He will be arranged for home health as requested by his . # bilateral pneumonia IV ceftriaxone and azithromycin pancultured in the ER. Cultures no growth to date . Switched to cefdinir at discharge # recurrent falls PT OT to see . Recommended strongly for placement however who is his primary caregiver adamantly refuses our recommendation. # bilateral lower extremity edema likely venous Insufficiency. Venous duplex negative for DVT . # severe dementia With behavioral problem. Need to see neurologist as an outpatient basis. Likely need placement due to his severe dementia # hypertension resume home medication # hyperlipidemia statin # code status full code # DVT prophylaxis Lovenox # disposition: home with home health arranged for discharge Time Spent with Patient Time attestation: Total time spent providing and/or coordinating discharge services: 50 minutes Exam Narrative: APPEARANCE: confused looking, no pain, no distress, well-nourished. HEAD: normocephalic, atraumatic. EYES: PERRLA/EOMI, conjunctivae clear. NOSE: Normal no drainage THROAT: Pharynx clear, no exudate. NECK: Supple. No adenopathy, no masses. RESPIRATORY: Airway patent, respirations nonlabored. Clear to auscultation bilaterally, no rales, rhonchi, wheezing. CARDIOVASCULAR: Regular rate and rhythm without murmurs rubs or gallops. ABDOMINAL: Soft, nontender, nondistended, normal bowel sounds MUSCULOSKELETAL: Moves all extremities. Strength/ROM intact, Bilateral lower extremity edema noted pitting, No calf tenderness. NEURO: Alert. Confused , oriented to self but not to time and place. Cranial nerves II through XII intact.? Grossly intact, moving all his extremities SKIN: Warm, dry. Normal Color DS: Data Data Completed and Pending Labs on day of discharge: Labs from last 24 hours 08/13/22 08/13/22 05:18 05:18 WBC 6.1 RBC 4.46 L Hgb 13.5 L Hct 40.7 L MCV 91.3 MCH 30.3 MCHC 33.2 RDW 12.9 Plt Count 241 MPV 9.6 Immature Gran % (Auto) 0.3 Neut % (Auto) 57.6 Lymph % (Auto) 23.8 [place] % (Auto) 11.2 H Eos % (Auto) 6.4 H Baso % (Auto) 0.7 Lymph # (Auto) 1.45 [place] # (Auto
--- NOTE | 2022-08-13 13:46 | PCPTNOTE ---
Attempted to see patient for PT at this time, however patient is very confused and refusing to work with therapy. RN aware.
[2022-08-13 14:00] VITALS: BP 112/92; PULSE 89; RESP 16; TEMP 36.2; O2SAT 97
--- NOTE | 2022-08-13 15:33 | PM.IMPN ---
Progress Note: A&P Assessment and Plan (1) Pneumonia: Code(s): J18.9 - Pneumonia, unspecified organism Status: Acute Assessment and Plan: Completed treatment Seems stable at this time Room air Trend respiratory status (2) Recurrent falls: Code(s): R29.6 - Repeated falls Status: Acute Assessment and Plan: PT/OT Gait training Rehab placement (3) Encephalopathy: Code(s): G93.40 - Encephalopathy, unspecified Status: Acute Assessment and Plan: Brain MRI normal brain Brain CT no acute findings EEG see report Neurology consulted Trend mental status Seems more of a delirium on top of dementia Continue Zyprexa for now (4) Hypertension: Code(s): I10 - Essential (primary) hypertension Status: Acute Assessment and Plan: BP stable Continue home amlodipine Trend BP Adjust therapy as indicated (5) Hyperlipidemia: Code(s): E78.5 - Hyperlipidemia, unspecified Status: Acute Assessment and Plan: Continue home medications (6) Right shoulder pain: Code(s): M25.511 - Pain in right shoulder Status: Acute Assessment and Plan: Xray ordered pain medications on board Time Spent With Patient Time with patient: Greater than 35 minutes Subjective Date/time seen: 08/13/22 15:33 Interval history: Patient is an 86 year old male with a past medical history HTN, HLD that presented to the hospital after a fall. Today was quite challenging for the patient and his . Concern about discharge was presented. She has not been really receptive to the idea of rehab and would only like for the patient to be taken home. However, the patient is not doing well with mobility. After talking with the patient and his it was found that the patient is having some pain with his right shoulder. He has been treated for PNA, and extensive workup for encephalopathy has also been performed. No findings have been obtained. Will have neurology come to see the patient, as his thinks that his mental status is worse than what it has been. Currently patient is not giving me a complete review of systems, however, he is stating that he is having pain. He also needs to be placed on a day sleep schedule. Review of Systems Review of Systems: ROS unobtainable: Yes unobtainable due to mental status Exam Const: General: cooperative, no acute distress, well developed, awake, ill appearing, tired appearing and uncomfortable Nutritional Appearance: thin and underweight Orientation/consciousness: confusion Limitations: altered mental status HENMT: Head: normal to inspection Ears: hearing grossly normal bilaterally General nose exam: Normal external nose present Mouth: Yes Normal oral and palatal mucosa present, Yes lip normal and Yes tongue normal Teeth and gingiva: abnormal tooth and associated gingiva and poor dentition Eyes: General: appearance normal, both eyes and all related structures Neck: Neck: normal visual inspection, full ROM, trachea midline and supple Chest: Chest palpation & inspection: normal inspection of the chest Resp: Effort & Inspection: normal respiratory effort and able to speak in complete sentences Auscultation: clear to auscultation bilaterally Cardio: Jugular venous distension: no JVD Rate: regular rate Rhythm: regular rhythm Heart sounds: S1 normal heart sound present and S2 normal heart sound present Peripheral pulses: Peripheral pulses 2+ throughout GI: Inspection: normal to inspection GI Palp: Yes Soft to palpation and No Tenderness to palpation present (GI) Auscultation: normal bowel sounds Skin: General skin exam: normal color and no rashes or lesions noted Lesions: no lesions Rashes: no rashes Trauma: no lacerations or abrasions Wounds: no wounds Hair: normal Nails: normal Neuro: General: patient oriented x3, moves
[2022-08-13 20:00] VITALS: PULSE 89; RESP 16; O2SAT 97
[2022-08-13] MEDS: OLANZapine 2.5 MG TABLET PO (21:10)
[2022-08-13 22:00] VITALS: BP 97/36; PULSE 80; RESP 18; TEMP 36.7; O2SAT 98
[2022-08-14 05:37] LABS: Basophils Absolute Auto 0.1 K/mm3 (0.0-0.1); Basophils Percent Auto 0.9 % (0.2-1.2); Eosinophils Absolute Auto 0.2 K/mm3 (0-0.3); Eosinophils Percent Auto 4.1 % (0-4.4); Hematocrit 37.1 % (42.0-52.0); Hemoglobin 12.4 g/dL (14.0-18.0); Immature Granulocyte Absolute 0.02 K/mm3 (0.00-0.031); Immature Granulocyte Percent A 0.4 % (0-0.5); Lymphocytes Absolute Auto 0.95 K/mm3 (0.9-3.2); Lymphocytes Percent Auto 17.5 % (18.3-44.2); Mean Corpuscular HGB Conc 33.4 g/dl (32-36); Mean Corpuscular Hemoglobin 31.1 pg (26-34); Mean Platelet Volume 9.8 fl (7.4-10.4); Monocytes Absolute Auto 0.5 K/mm3 (0.1-0.6); Monocytes Percent Auto 9.4 % (2.6-8.5); Neutrophils Absolute Auto 3.7 K/mm3 (1.3-6.7); Neutrophils Percent Auto 67.7 % (45.5-73.1); Platelet Count Result 234 k/mm3 (150-375); Red Blood Count 3.99 M/mm3 (4.6-6.20); Red Cell Distribution Width 13.2 % (11.5-14.5); White Blood Count 5.4 K/mm3 (4.5-10.0)
[2022-08-14 05:47] LABS: Alanine Aminotransferase 21 U/L (6-50); Albumin Level 3.6 g/dL (3.5-5.1); Alkaline Phosphatase 70 U/L (38-126); Anion Gap 11 mmol/L (8-16); Aspartate Amino Transferase 34 U/L (17-59); Bilirubin,Total 0.7 mg/dL (0.2-1.3); Blood Urea Nitrogen 31 mg/dL (9-20); Calcium 8.6 mg/dL (8.4-10.2); Carbon Dioxide 29 mmol/L (22-30); Chloride 102 mmol/L (98-107); Estimated Glomerular Filt Rate > 60; Glucose 101 mg/dL (65-110); Potassium 3.3 mmol/L (3.4-5.0); Sodium 142 mmol/L (137-145)
[2022-08-14 06:00] VITALS: BP 107/77; PULSE 80; RESP 16; TEMP 37.1; O2SAT 98
[2022-08-14] MEDS: LOSARTAN POTASSIUM 100 MG TABLET PO (08:46)
[2022-08-14] MEDS: ASPIRIN 81 MG CHEWABLE TABLET PO (08:46)
[2022-08-14] MEDS: SIMVASTATIN 20 MG TABLET 40 MG PO (08:46)
[2022-08-14] MEDS: hydroCHLOROthiazide 12.5 MG CAPSULE PO (08:47)
[2022-08-14] MEDS: ENOXAPARIN 40 MG/0.4 ML SYRINGE SUB-Q (08:47)
[2022-08-14] MEDS: amLODIPine BESYLATE 2.5 MG TABLET PO (08:47)
[2022-08-14 14:00] VITALS: BP 90/60; PULSE 66; RESP 18; TEMP 36.4; O2SAT 92
--- NOTE | 2022-08-14 14:38 | WPDNEURCNPN ---
Assessment and Plan Assessment and plan (1) Encephalopathy: Code(s): G93.40 - Encephalopathy, unspecified Status: Acute (2) Dementia: Code(s): F03.90 - Unspecified dementia without behavioral disturbance Status: Acute Plan ongoing dementia with encephalopathy, abnormal EEG and no focal neuro deficit otherwise CT head with no bleed or hydrocephalus an MRI of the brain also with no territorial stroke, ultrasound of lower extremities negative treatment as such Consult date: 08/14/22 HPI: Jackson Live is a 86 year old male admitted to the hospital for the complaints of dizziness through the emergency room in a ground level fall but history of frequent falls in addition to the underlying history of dementia patient was reportedly found sitting on the floor and was not sure whether he hit his head or not. Has been taking multiple medication particularly included aspirin 81 mg daily losartan with hydrochlorothiazide daily amlodipine 2.5 mg daily. In the emergency room was found to have normal vital signs except blood pressure 171/86 normal CBC with borderline hemoglobin of 11.9 BMP with potassium 3.[address] scan of the head negative chest x-ray with no broken ribs his small left pleural effusion findings suggestive of atelectasis versus pneumonia, EEG has been done on August 12, 2022 which is abnormal due to the absence of normal background rhythm findings suggestive of organic a metabolic encephalopathy Review of Systems Review of Systems: All systems reviewed & are unremarkable except as noted in HPI and below PMFSH Social History Social History Additional smoking assessment comments: unknown Spiritual care concerns: No Meds Home Medications and Allergies Home Medications Medication Instructions Recorded Confirmed Type amlodipine 2.5 mg tablet 2.5 mg PO DAILY 08/09/22 08/09/22 History aspirin 81 mg chewable tablet 80 mg PO DAILY 08/09/22 08/09/22 History losartan 100 100.25 tablet PO DAILY 08/09/22 08/09/22 History mg-hydrochlorothiazide 12.5 mg tablet simvastatin 80 mg tablet 40 mg PO DAILY 08/09/22 08/09/22 History Allergies Allergy/AdvReac Type Severity Reaction Status Date / Time No Known Allergies Allergy Verified 08/09/22 07:26 Vital Signs Vital Signs - 24 hr 08/13/22 20:00 08/13/22 22:00 08/14/22 06:00 Temperature 36.7 C 37.1 C Pulse Rate 89 80 80 Respiratory Rate 16 18 16 Blood Pressure 97/36 L 107/77 Pulse Oximetry 97 98 98 Oxygen Delivery Room Air 08/14/22 08:30 Temperature Pulse Rate Respiratory Rate Blood Pressure Pulse Oximetry Oxygen Delivery Room Air Exam Const: General: no acute distress, awake and confusion Nutritional Appearance: average body habitus Orientation/consciousness: confusion Limitations: behavioral limitations and physical limitations HENMT: Head: normocephalic Ears: hearing grossly normal bilaterally General nose exam: Normal external nose present Face and sinus: normal facial exam Mouth: Yes Normal oral and palatal mucosa present Eyes: General: appearance normal, both eyes and all related structures Visual Voss: normal visual voss by confrontation Alignment and Position: alignment normal Periorbital: periorbital findings normal Eyelids: eyelids normal Conjunctivae: conjunctivae normal EOM: EOMs intact bilaterally ( spontaneously in the horizontal gaze) Direct Ophthalmoscopy: no photophobia Neck: Neck: full ROM and no lymphadenopathy Resp: Auscultation: clear to auscultation bilaterally Cardio: Rate: regular rate Rhythm: regular rhythm Skin: General skin exam: no rashes or lesions noted Neuro: Cognition (Neuro): abnormal cognition Speech: aphasia Gait exam (Neuro): Unable to assess gait Motor exam (neuro): Pronator motor function not present, Normal motor muscle tone present throughout and Abnormal motor strength present Deep tendon reflexes (DTR's): Right triceps reflex intensity
[2022-08-14 17:11] LABS: Folic Acid > 20.0 ng/mL (2.76->20)
--- NOTE | 2022-08-14 17:34 | PM.IMPN ---
Progress Note: A&P Assessment and Plan (1) Pneumonia: Code(s): J18.9 - Pneumonia, unspecified organism Status: Acute Assessment and Plan: Continue cefdinir for 5 more days (2) Recurrent falls: Code(s): R29.6 - Repeated falls Status: Acute Assessment and Plan: Rehab placement at discharge (3) Encephalopathy: Code(s): G93.40 - Encephalopathy, unspecified Status: Acute Assessment and Plan: Appreciate neurology consultation, states patient is back to baseline, no further workup needed (4) Hypertension: Code(s): I10 - Essential (primary) hypertension Status: Acute Assessment and Plan: Stable (5) Hyperlipidemia: Code(s): E78.5 - Hyperlipidemia, unspecified Status: Acute Assessment and Plan: Continue statin (6) Right shoulder pain: Code(s): M25.511 - Pain in right shoulder Status: Acute Assessment and Plan: X-ray pending Plan DVT prophylaxis with Lovenox GI prophylaxis not indicated Code status full code Subjective Date/time seen: 08/14/22 17:34 Objective Data Vital Signs Vital Signs: Vital Signs - 24 hr 08/13/22 20:00 08/13/22 22:00 08/14/22 06:00 Temperature 98.1 F 98.7 F Pulse Rate 89 80 80 Respiratory Rate 16 18 16 Blood Pressure 97/36 L 107/77 Pulse Oximetry 97 98 98 Oxygen Delivery Room Air 08/14/22 08:30 08/14/22 14:00 Temperature 97.5 F L Pulse Rate 66 Respiratory Rate 18 Blood Pressure 90/60 L Pulse Oximetry 92 Oxygen Delivery Room Air Intake/Output Intake/Output: Intake & Output 08/11/22 08/12/22 08/13/22 08/14/22 23:59 23:59 23:59 23:59 Intake Total 670 1260 880 240 Balance 670 1260 880 240 Meds/Results Medications: Active Medications Generic Name Dose Route Start Last Admin Trade Name Freq PRN Reason Stop Dose Admin Amlodipine Besylate 2.5 mg 08/10/22 09:00 08/14/22 08:47 Amlodipine Besylate 2.5 Mg Tablet PO 2.5 mg DAILY DURAN Administration Aspirin 81 mg 08/10/22 09:00 08/14/22 08:46 Aspirin 81 Mg Chewable Tablet PO 81 mg DAILY DURAN Administration Cefdinir 300 mg 08/14/22 21:00 Cefdinir 300 Mg Capsule PO 08/16/22 09:01 Q12HR DURAN Enoxaparin Sodium 40 mg 08/10/22 09:00 08/14/22 08:47 Enoxaparin 40 Mg/0.4 Ml Syringe SUB-Q 40 mg DAILY DURAN Administration Hydrochlorothiazide 12.5 mg 08/10/22 09:00 08/14/22 08:47 Hydrochlorothiazide 12.5 Mg Capsule PO 12.5 mg DAILY DURAN Administration Losartan Potassium 100 mg 08/10/22 09:00 08/14/22 08:46 Losartan Potassium 100 Mg Tablet PO 100 mg DAILY DURAN Administration Olanzapine 2.5 mg 08/12/22 21:00 08/13/22 21:10 Olanzapine 2.5 Mg Tablet PO 2.5 mg HS DURAN Administration Simvastatin 40 mg 08/10/22 09:00 08/14/22 08:46 Simvastatin 20 Mg Tablet PO 40 mg DAILY DURAN Administration Radiology Results: ITS Impressions Head CT 08/09/22 07:47 IMPRESSION: 1. Normal aging brain. Ribs w/Chest X-Ray 08/09/22 08:15 IMPRESSION: 1. Airspace opacities at the lung bases, left worse than right, consistent with atelectasis versus pneumonia. 2. Possible small left pleural effusion. 3. No rib fracture. Venous Doppler Study 08/10/22 14:59 IMPRESSION: 1. Patent bilateral lower extremity veins. No evidence of deep venous thrombosis. Brain MRI 08/12/22 15:04 IMPRESSION: 1. Normal aging brain. Labs Labs: Laboratory Results - last 24 hr 08/14/22 08/14/22 08/14/22 05:16 05:17 05:17 WBC 5.4 RBC 3.99 L Hgb 12.4 L Hct 37.1 L MCV 93.0 MCH 31.1 MCHC 33.4 RDW 13.2 Plt Count 234 MPV 9.8 Immature Gran % (Auto) 0.4 Neut % (Auto) 67.7 Lymph % (Auto) 17.5 L [place] % (Auto) 9.4 H Eos % (Auto) 4.1 Baso % (Auto) 0.9 Lymph # (Auto) 0.95 [place] # (Auto) 0.5 Eos # (Auto) 0.2 Baso # (Auto) 0.1 Ab
[2022-08-14 19:51] VITALS: BP 96/54; PULSE 83; RESP 18; TEMP 36.6; O2SAT 91
[2022-08-14 20:00] VITALS: PULSE 83; RESP 18; O2SAT 91
[2022-08-14] MEDS: OLANZapine 2.5 MG TABLET PO (20:05)
[2022-08-14] MEDS: CEFDINIR 300 MG CAPSULE PO (20:05)
[2022-08-15 05:40] VITALS: BP 103/49; PULSE 52; RESP 16; TEMP 36.6; O2SAT 100
[2022-08-15] MEDS: ENOXAPARIN 40 MG/0.4 ML SYRINGE SUB-Q (08:50)
[2022-08-15] MEDS: ASPIRIN 81 MG CHEWABLE TABLET PO (08:50)
[2022-08-15] MEDS: SIMVASTATIN 20 MG TABLET 40 MG PO (08:50)
[2022-08-15] MEDS: CEFDINIR 300 MG CAPSULE PO (08:50)
[2022-08-15] MEDS: hydroCHLOROthiazide 12.5 MG CAPSULE PO (08:50)
[2022-08-15] MEDS: amLODIPine BESYLATE 2.5 MG TABLET PO (08:50)
[2022-08-15] MEDS: LOSARTAN POTASSIUM 100 MG TABLET PO (08:50)
--- NOTE | 2022-08-15 09:34 | PM.DS ---
DS: Admitting Diagnosis Discharge Date August 15, 2022 Admitting Diagnosis Fall DS: Discharge Diagnosis Discharge Diagnosis (1) Pneumonia: Code(s): J18.9 - Pneumonia, unspecified organism Status: Acute Assessment and Plan: Continue cefdinir for 5 more days (2) Recurrent falls: Code(s): R29.6 - Repeated falls Status: Acute Assessment and Plan: Rehab placement at discharge (3) Encephalopathy: Code(s): G93.40 - Encephalopathy, unspecified Status: Acute Assessment and Plan: Appreciate neurology consultation, states patient is back to baseline, no further workup needed (4) Hypertension: Code(s): I10 - Essential (primary) hypertension Status: Acute Assessment and Plan: Stable (5) Hyperlipidemia: Code(s): E78.5 - Hyperlipidemia, unspecified Status: Acute Assessment and Plan: Continue statin (6) Right shoulder pain: Code(s): M25.511 - Pain in right shoulder Status: Acute Assessment and Plan: X-ray pending Plan DVT prophylaxis with Lovenox GI prophylaxis not indicated Code status full code DS: Summary Hospital Course Hospital Course: 86-year-old male who presents to the ED after dizziness and ground level fall.? He has a history of recurrent fall and was recently in the ER for the similar situation.? He is a poor historian has an underlying dementia and not able to describe history of present illness.? According to the medical record he had gotten out of the bed and was walking when his found him sitting on the floor.? It is unclear whether he hit his head or not.? He complained of left rib pain.? He denies any other complaints currently.? He denies any chest pain or shortness of breath.? Workup had revealed some opacities in a chest x-ray urine had some blood otherwise negative for urine infection.? When asked she does endorse he has cough however this is unreliable.? His family is not at bedside currently given recurrent fall history is admitted for further evaluation and management and possibly placement due to his severe underlying dementia. Patient was found to have pneumonia, he was treated for this with Rocephin azithromycin which was then transitioned to cefdinir. He also had some right shoulder pain, x-ray was negative for any intraosseous abnormalities. He can follow with PT and rehab for this. Patient's dementia returned to baseline per family. He was discharged in stable condition to a rehab facility. Time Spent with Patient Time attestation: Total time spent providing and/or coordinating discharge services: DS: Data Data Completed and Pending Labs on day of discharge: Labs from last 24 hours 08/14/22 05:16 Vitamin B12 289.0 Folate > 20.0 H Discharge Plan Discharge Attending physician on discharge: Kennedy Garcia Consulting providers: Dominic Barcenas Discharging Clinician: Kennedy Garcia Anticipated Discharge Date/Time: 08/13/22 12:38 Patient Disposition: Inpatient Rehab Facility Activity: as tolerated Diet: heart healthy Discharge Instructions: Per Care Coordination Patient has an appointment with Dr. Bandar Gill Aug 20 at 1130 am for PCP. Patient to arrive for appointment at 11 am. [address] [facility], (off [facility] in [place] across [facility]) [address], [place], [place] [phone] Patient Instructions: Antibiotic Form Stand Alone Forms: General Discharge Information Follow-up/Referrals: Blaise Clinton MD [Primary Care Provider] - 1 Week Discharge Medications: New cefdinir 300 mg capsule 300 mg PO Q12H 2 Days Qty: 4 0RF Continued amlodipine 2.5 mg tablet 2.5 mg PO DAILY simvastatin 80 mg Tablet 40 mg PO DAILY losartan-hydrochlorothiazide 100-12.5 mg tablet 100.25 tablet PO DAILY Changed aspirin 81 mg Tablet,Chewable 81
[2022-08-15 14:00] VITALS: BP 86/70; PULSE 70; RESP 20; TEMP 36.4; O2SAT 100
[2022-08-15 16:15] LABS: EDCOVIDSCREEN Negative (Negative)
== END 2022-08-15 19:40 | DRG 193 ==
LOC: ANHED 09:50 → ANH3MED 10:41
PROVIDERS: Internal Medicine; Nurse Practitioner; Admitting Provider Hospitalist; Emergency Provider Emergency Medicine; PCP Family Medicine; Visit Provider Student in an Organized Health Care Education/Training Program
DX: J18.9 Pneumonia, unspecified organism (principal); G93.41 Metabolic encephalopathy; M25.511 Pain in right shoulder; I10 Essential (primary) hypertension; E78.5 Hyperlipidemia, unspecified; R29.6 Repeated falls; F03.90 Unspecified dementia, unspecified severity, without behavioral disturbance, psychotic disturbance, mood disturbance, and anxiety; Z20.822 Contact with and (suspected) exposure to COVID-19; Z79.82 Long term (current) use of aspirin
CPT/HCPCS: 36415; 70450; 70551; 71046; 71100; 73030; 80053; 81001; 82550; 82607; 82746; 83735; 84443; 85025; 87426; 93005; 93970; 95816; 96365; 96366; 96367; 96372; 97110; 97161; 97165; 97530; 97535; 99285; A9270; C9803; G0378; J0456; J0696; J1650; U0003; U0005

== ENCOUNTER 2022-09-20 08:55 | Outpatient (CLI) | payer MEDICARE, SELFPAY ==
[2022-09-20 19:53] LABS: Cholesterol 169 mg/dL (0-200); HDL Direct 82 mg/dL; Triglycerides 46 mg/dL (<150)
[2022-09-20 20:08] LABS: LDL Cholesterol Direct 71 mg/dL
[2022-09-21 05:55] LABS: Anion Gap 15 mmol/L (8-16); Blood Urea Nitrogen 20 mg/dL (9-20); Carbon Dioxide 27 mmol/L (22-30); Chloride 102 mmol/L (98-107); Estimated Glomerular Filt Rate > 60; Glucose 84 mg/dL (65-110); Potassium 3.5 mmol/L (3.4-5.0); Sodium 144 mmol/L (137-145)
== END 2022-09-20 08:56 | disposition home or self-care (01) ==
PROVIDERS: PCP Emergency Medicine; Visit Provider Internal Medicine Cardiovascular Disease
DX: E78.5 Hyperlipidemia, unspecified (principal); E87.6 Hypokalemia
CPT/HCPCS: 36415; 80048; 80061

== ENCOUNTER 2022-09-22 08:36 | Emergency (ER) | payer MEDICARE, SELFPAY ==
--- NOTE | ~2022-09-22 | CT_ITS ---
EXAMINATION: CT brain wo con DATE: 09/22/2022 09:27 INDICATION: Fall with head injury and posterior neck pain. TECHNIQUE: Computed tomography (CT) of the head was performed without intravenous contrast. Sagittal and coronal reconstructions were performed. The mA was adjusted according to patient size. Iterative reconstruction technique was employed. The dose-length product was 605.33 mGy-cm. COMPARISON: head CT dated 08/09/2022 and brain MR dated 08/12/2022 FINDINGS: Anterior left frontal scalp hematoma. No fracture. No acute intracranial hemorrhage, acute infarction or abnormal extra axial fluid collection. There is mild scattered white matter hypoattenuation consi stent with chronic small vessel ischemic disease. Symmetric prominence of the sulci consistent with m ild age-appropriate diffuse cerebral volume loss. Ventricles are normal and symmetric. No mass/mass e ffect. Changes of bilateral intraocular lens replacement. There is also been prior scleral banding at the left globe. Chronic small right mastoid effusion. Mild mucosal thickening the bilateral ethmoid sinuses. Persistent debris/cerumen at the bilateral external auditory canals, right greater than left . Intracranial calcified cerebral atherosclerosis is noted. IMPRESSION: 1. No fracture or acute intracranial process. 2. Age-related changes including mild diffuse volume loss and mild scattered white matter hypoattenua tion consistent with chronic small vessel ischemic disease. Reviewed, dictated and finalized at location A. IMPRESSION: 1. No fracture or acute intracranial process. 2. Age-related changes including mild diffuse volume loss and mild scattered wh ite matter hypoattenuation consistent with chronic small vessel ischemic diseas e.
--- NOTE | ~2022-09-22 | CT_ITS ---
EXAMINATION: 1. CT facial & cervical spine wo DATE: 09/22/2022 09:27 INDICATION: Head injury and posterior neck pain post fall TECHNIQUE: 1. Computed tomography (CT) of the maxillofacial region and of the cervical spine were performed with out intravenous contrast. Sagittal and coronal reconstructions of both regions were obtained. Automat ed exposure control and iterative reconstruction technique were employed. The dose-length product was 248.18 mGy-cm. COMPARISON: None. FINDINGS: Maxillofacial CT: Moderate-sized anterior left frontal scalp hematoma. No maxillofacial fractures. Specifically the wal ls of the orbits and paranasal sinuses, the nasal bones, nasal septum, zygomatic arches, mandible and pterygoid plates are normal. Changes of bilateral intraocular lens replacement. Left-sided scleral b anding. Orbits are otherwise unremarkable. Mild mucosal thickening the bilateral ethmoid and maxillar y sinuses. Temporomandibular joints are normal alignment 4 with mild right and moderate left osteoart hritis. Small dystrophic calcifications at the bilateral palatine tonsils. Additional small calcifica tion at the right side of the tongue, potentially a sialolith. Maxillofacial soft tissues are otherwi se unremarkable. Cervical spine CT: 2 mm retrolisthesis C3 on C4. Vertebral body heights are normal. Small Schmorl's node along the super ior endplate of T2. No fracture. Severe disc height loss at C3-C4, C5-C6 and C6-C7, moderate disc hei ght loss at C4-C5 and C7-T1 and mild disc height loss at C2-C3. Disc bulges at C3-C4 and small pharmacy care coordinator ior disc osteophyte complexes at C5-C6 resulting in mild central canal stenosis at these levels. Mult ilevel moderate to severe cervical facet and uncovertebral osteoarthritis. This contributes to modera te neural foraminal stenosis on the right at C4-C5 and on the left at C5-C6. Mild neural foraminal st enosis at multiple additional levels on both the left and right. Atherosclerotic calcification is at the bilateral carotid bulbs. Cervical soft tissues are otherwise unremarkable. Moderate emphysema. Vi sualized apices of the lungs. IMPRESSION: 1. No maxillofacial fractures. 2. Severe cervical spondylosis with no acute osseous or mild to . 3. Moderate emphysema. Reviewed, dictated and finalized at location A.
[2022-09-22 08:36] VITALS: BP 177/68; PULSE 60; RESP 16; TEMP 36.2; O2SAT 99
[2022-09-22 09:30] VITALS: BP 158/78; PULSE 58; RESP 16; O2SAT 98
--- NOTE | 2022-09-22 09:43 | ED.GENADULT ---
HPI - General Adult General Chief complaint: Fall Stated complaint: ambulance Source: patient, family and EMS Mode of arrival: ambulatory Limitations: dementia History of Present Illness HPI narrative: Patient is a 86-year-old white male with history of Alzheimer's dementia lives at home with his . She last saw him at midnight when he did want to go to bed. This morning patient was found on the porch of their neighbors 2 yards away med and evidently fall. he had abrasion to left side of his face and left knee without any active bleeding. He did not know what happened to him or how he got there. Patient was brought by EMS to ER for evaluation. Patient had no complaints. stated he is at his baseline. Sometimes he wonders. The last time he left home he fell and that was about a year ago. He uses a walker when he wants to which is rarely. Otherwise he has been eating and drinking fine and has not been ill recently. Patient was found on neighbor's porch with the depends on no pants shirt his depends was soaked in urine. MD complaint: Fall abrasion to the face and left knee Related Data Home Medications Medication Instructions Recorded Confirmed amlodipine 2.5 mg tablet 2.5 mg PO DAILY 08/09/22 09/22/22 simvastatin 80 mg tablet 40 mg PO DAILY 08/09/22 09/22/22 acetaminophen 500 mg tablet 500 mg PO Q6H PRN Pain 08/30/22 09/22/22 (Tylenol Extra Strength) multivitamin (Daily Multi-Vitamin 1 tablet PO DAILY 08/30/22 09/22/22 tablet) losartan 100 1 tablet PO DAILY 09/22/22 09/22/22 mg-hydrochlorothiazide 12.5 mg tablet Allergies Allergy/AdvReac Type Severity Reaction Status Date / Time No Known Allergies Allergy Verified 09/22/22 09:02 Review of Systems Constitutional: Constitutional: Reports no additional constitutional complaints, Denies chills, Denies fatigue, Denies fever(s) and Denies weakness Eyes: Eyes: Reports no additional eye complaints ENT: Reports system reviewed and no additional complaints, except as documented Cardiovascular: Cardiovascular: Reports no additional cardiovascular complaints, Denies chest pain and Denies rapid heart rate Comments: has an implantable cardiac device that monitors his heart Respiratory: Respiratory: Reports no additional respiratory complaints, Denies chest congestion, Denies cough, Denies dyspnea and Denies wheezing Gastrointestinal: Gastrointestinal: Reports no additional gastrointestinal complaints Genitourinary: Genitourinary: Reports no additional male genitourinary complaints, Reports as per HPI and Reports urinary incontinence Musculoskeletal: Musculoskeletal: Reports no additional musculoskeletal complaints, Reports as per HPI, Denies back pain, Denies myalgias, Denies arthralgias, Denies joint swelling and Denies muscle cramps Neurologic: Reports system reviewed and no additional complaints, except as documented, Reports as per HPI, Reports confusion ( patient has had his baseline mentally and physically per .), Denies dizziness, Denies headache(s), Denies focal weakness, Denies numbness and Denies weakness Psychiatric: Psychiatric: Reports no additional psychiatric complaints [facility] Social History Social History Smoking status: Former smoker Additional smoking assessment comments: unknown Alcohol intake: never Spiritual care concerns: No Exam Narrative: Patient is elderly white male blood pressure 177/68 pulse 60 respirations 16 temp 36.2? C O2 sat on room air 99% head: Nontender he has abrasion on left side of his face without any active bleeding or tenderness. Ears: Bilateral cerumen impaction. Hearing grossly intact. eyes: Pupils are equal round and reactive to light extraocular movements are intact, sclera nonicteric conjunctivae are pink. Oropharynx is clear with moist mucous membranes. Neck is supple without lymphadenopathy heart is regular rate rhythm witho
[2022-09-22] MEDS: TETANUS,DIPHTHERIA,AC PERTUSSIS ADULT 0.5 ML (ADACEL) IM (10:02)
[2022-09-22 10:25] VITALS: BP 146/80; PULSE 60; RESP 16; TEMP 36.4; O2SAT 99
== END 2022-09-22 10:35 | disposition home or self-care (01) ==
PROVIDERS: Emergency Provider Emergency Medicine; PCP Emergency Medicine
DX: S00.81XA Abrasion of other part of head, initial encounter (principal); S80.212A Abrasion, left knee, initial encounter; W18.30XA Fall on same level, unspecified, initial encounter; G30.9 Alzheimer's disease, unspecified; F02.80 Dementia in other diseases classified elsewhere, unspecified severity, without behavioral disturbance, psychotic disturbance, mood disturbance, and anxiety; Z87.891 Personal history of nicotine dependence
CPT/HCPCS: 70450; 70486; 72125; 90471; 90715; 99284

== ENCOUNTER 2022-10-14 08:59 | Outpatient (CLI) | payer MEDICARE, SELFPAY ==
[2022-10-14 19:17] LABS: Alanine Aminotransferase 21 U/L (6-50); Albumin Level 3.8 g/dL (3.5-5.1); Alkaline Phosphatase 86 U/L (38-126); Anion Gap 12 mmol/L (8-16); Aspartate Amino Transferase 24 U/L (17-59); Bilirubin,Total 0.3 mg/dL (0.2-1.3); Blood Urea Nitrogen 18 mg/dL (9-20); Calcium 8.9 mg/dL (8.4-10.2); Carbon Dioxide 28 mmol/L (22-30); Chloride 106 mmol/L (98-107); Estimated Glomerular Filt Rate > 60; Glucose 76 mg/dL (65-110); Potassium 3.6 mmol/L (3.4-5.0); Sodium 146 mmol/L (137-145)
[2022-10-14 19:57] LABS: Appearance Urine Clear (Clear); Bilirubin Urine Negative (Negative); Blood Urine Negative (Negative); Color Urine Yellow (Yellow); Glucose Urine UA Negative (Negative); Ketones Urine Negative (Negative); Leukocyte Esterase Ur Negative LEU/UL (Negative); Nitrate Urine Negative (Negative); Protein Urine 1+ mg/dL (Negative); Specific Grav Ur 1.025 (1.001-1.035)
[2022-10-14 20:02] LABS: Basophils Percent Auto 0.7 % (0.2-1.2); Eosinophils Absolute Auto 0.1 K/mm3 (0-0.3); Eosinophils Percent Auto 1.8 % (0-4.4); Hematocrit 38.9 % (42.0-52.0); Hemoglobin 12.2 g/dL (14.0-18.0); Immature Granulocyte Absolute 0.03 K/mm3 (0.00-0.031); Immature Granulocyte Percent A 0.5 % (0-0.5); Lymphocytes Absolute Auto 0.95 K/mm3 (0.9-3.2); Lymphocytes Percent Auto 15.9 % (18.3-44.2); Mean Corpuscular HGB Conc 31.4 g/dl (32-36); Mean Corpuscular Hemoglobin 30.3 pg (26-34); Mean Corpuscular Volume 96.5 fl (80-100); Mean Platelet Volume 10.6 fl (7.4-10.4); Monocytes Absolute Auto 0.6 K/mm3 (0.1-0.6); Monocytes Percent Auto 9.7 % (2.6-8.5); Neutrophils Absolute Auto 4.3 K/mm3 (1.3-6.7); Neutrophils Percent Auto 71.4 % (45.5-73.1); Platelet Count Result 275 k/mm3 (150-375); Red Blood Count 4.03 M/mm3 (4.6-6.20); Red Cell Distribution Width 13.1 % (11.5-14.5)
[2022-10-14 20:08] LABS: Bacteria Urine Trace /hpf; Mucus Urine Rare /lpf; Squamous Epithelial Cell Urine Rare /hpf (Few); WBC Urine 0-3 /hpf
[2022-10-14 20:09] LABS: Add Urine Microscopic? YES
== END 2022-10-14 09:00 | disposition home or self-care (01) ==
PROVIDERS: PCP Emergency Medicine; Visit Provider Emergency Medicine
DX: R41.82 Altered mental status, unspecified (principal)
CPT/HCPCS: 36415; 80053; 81001; 85025

== ENCOUNTER → 2022-10-14 09:23 | Outpatient (CLI) | payer MEDICARE, SELFPAY ==
--- NOTE | ~2022-10-14 | XR_ITS ---
XR chest 2V DATE: 10/14/2022 09:52 INDICATION: Altered mental status. Dementia. TECHNIQUE: 2 views COMPARISON: 08/09/2022 2 view chest FINDINGS: Borderline heart size. Minimal atelectasis or scarring at the lung bases. Lungs appear mode rately hyperinflated. No pleural effusion or pulmonary vascular congestion or pneumothorax. There is aortic and great vessel calcification. IMPRESSION: Minimal atelectasis or scarring at the lung bases Borderline heart size Aortic atherosclerosis Moderate bilateral hyperinflation Reviewed, dictated and finalized at location A. D AND FAMILY THERAPIST
== END ==
PROVIDERS: PCP Emergency Medicine; Visit Provider Emergency Medicine
DX: R41.82 Altered mental status, unspecified (principal); R91.8 Other nonspecific abnormal finding of lung field; I70.0 Atherosclerosis of aorta
CPT/HCPCS: 71046

== ENCOUNTER 2022-10-26 18:09 | Emergency (ER) | payer MEDICARE, SELFPAY ==
--- NOTE | ~2022-10-26 | XR_ITS ---
EXAMINATION: XR chest 1V portable Exam Date/Time: 10/26/2022 18:35 ECONOMIC DEVELOPMENT MANAGER HISTORY: CONFUSED Comparison: 10/14/2022. RESULT: Lines, tubes, and devices: Cardiac Loop recorder. Lungs and pleura: Linear and patchy bibasilar opacities. Cardiomediastinal silhouette: Stable. Other: No acute osseous or upper abdominal finding. IMPRESSION: Bibasilar consolidation/atelectasis. Reviewed, dictated and finalized at location K. OMIC DEVELOPMENT MANAGER
--- NOTE | ~2022-10-26 | CT_ITS ---
EXAMINATION: CT brain wo con DATE: 10/26/2022 18:57 INDICATION: DEMENTIA/NO COMPLAINTS . TECHNIQUE: Computed tomography (CT) of the head was performed without intravenous contrast. The mA wa s adjusted according to patient size. Iterative reconstruction technique was employed. The dose-lengt h product was 681.00 mGy-cm. COMPARISON: None FINDINGS: No acute intracranial hemorrhage or extra-axial fluid collection. No hydrocephalus, mass, or herniation. No acute ischemic infarct. Unremarkable dural venous sinus attenuation. No acute osseous abnormality. Small right mastoid effusion, the remaining aerated spaces are clear. Mild atrophy and chronic white matter change. Atherosclerotic intracranial calcification. Bilateral l ens replacements and left scleral band. IMPRESSION: No acute intracranial process. Reviewed, dictated and finalized at location K. IAL CLASS WELDER
[2022-10-26 18:21] VITALS: BP 133/66; PULSE 88; RESP 16; TEMP 36.5; O2SAT 95
--- NOTE | 2022-10-26 18:28 | ECG_ITS ---
Rate 64 NM 258 QRSd 121 QT 399 QTc 413 --[place]-- P 95 QRS 64 T 29 SINUS RHYTHM WITH FIRST DEGREE AV BLOCK ATRIAL PREMATURE COMPLEX IVCD, FEATURES OF BOTH RBBB, LBBB BASELINE ARTIFACT- I, III, AVL, V1-V2 ABNORMAL ECG COMPARED TO ECG 08/09/2022 07:09:29 NO SIGNIFICANT CHANGES Electronically Signed On 10-26-2022 22:22:15 MINT MACHINE OPERATOR by Blaze KING
[2022-10-26] MEDS: SODIUM CHLORIDE 0.9% IV 500 ML 999 ML IV CONT (19:09)
[2022-10-26 19:19] LABS: Basophils Absolute Auto 0.03 K/mm3 (0.00-0.10); Basophils Percent Auto 0.4 % (0.0-1.0); Eosinophils Percent Auto 1.3 % (1.0-6.0); Hematocrit 34.3 % (37.0-46.0); Hemoglobin 11.3 g/dL (12.4-15.3); Immature Granulocyte Absolute 0.02 K/mm3 (0.00-0.00); Immature Granulocyte Percent A 0.3 % (0.0-0.0); Lymphocytes Absolute Auto 1.16 K/mm3 (1.10-4.50); Lymphocytes Percent Auto 15.3 % (18.0-42.0); Mean Corpuscular HGB Conc 32.9 g/dL (32.0-36.0); Mean Corpuscular Hemoglobin 30.5 pg (27.0-31.0); Mean Corpuscular Volume 92.7 fL (78.0-102.0); Mean Platelet Volume 10.2 fl (8.7-11.0); Monocytes Absolute Auto 0.72 K/mm3 (0.10-0.90); Monocytes Percent Auto 9.5 % (2.0-11.0); Neutrophils Absolute Auto 5.5 K/mm3 (1.7-7.2); Neutrophils Percent Auto 73.2 % (50.0-70.0); Platelet Count Result 226 K/mm3 (150-420); Red Cell Distribution Width 12.5 % (11.6-14.4); White Blood Count 7.6 K/mm3 (4.8-10.8)
[2022-10-26 19:43] LABS: Albumin Level 2.9 g/dL (3.4-5.0); Alkaline Phosphatase 83 U/L (46-116); Anion Gap 5 mmol/L (8-16); Aspartate Amino Transferase 17 U/L (15-37); Bilirubin,Total 0.6 mg/dL (0.00-1.00); Blood Urea Nitrogen 19 mg/dL (7-18); Calcium 8.6 mg/dL (8.5-10.1); Carbon Dioxide 32 mmol/L (21-32); Chloride 108 mmol/L (98-108); Creatine Kinase 150 U/L (39-308); Estimated Glomerular Filt Rate > 60; Glucose 100 mg/dL (70-99); Osmolality Calculated 302 mOsm/kg (285-295); Potassium 4.4 mmol/L (3.5-5.1); Sodium 145 mmol/L (136-145); Thyroid Stimulating Hormone 3.57 uIU/mL (0.36-3.74); Total Protein 6.2 g/dL (6.4-8.2); Troponin I 13.4 ng/L (0.00-60.4)
[2022-10-26 19:45] LABS: Alanine Aminotransferase < 6 U/L (16-63); Ammonia < 10 umol/L (11-32)
[2022-10-26 19:50] LABS: Add Urine Microscopic? YES; Appearance Urine Clear (Clear); Bilirubin Urine Negative (Negative); Blood Urine Negative (Negative); Color Urine Yellow (Yellow); Glucose Urine UA Negative (Negative); Ketones Urine Negative (Negative); Leukocyte Esterase Ur Negative LEU/UL (Negative); Nitrate Urine Negative (Negative); Protein Urine Trace (Negative)
[2022-10-26 20:00] LABS: Amorphous Sediment Urine Few; Mucus Urine Heavy /lpf; RBC Urine 0-2 /hpf (0-2); Squamous Epithelial Cell Urine Occasional /hpf (Few); WBC Urine 0-3 /hpf (0-3)
[2022-10-26] MEDS: AZITHROMYCIN 250 MG TABLET 500 MG PO (20:41)
--- NOTE | 2022-10-26 22:12 | ED.AMS ---
HPI - Altered Mental Status General Chief Complaint: Altered Mental Status Stated Complaint: amb Time Seen by Provider: 10/26/22 18:12 Source: patient, EMS and RN notes reviewed Mode of arrival: EMS Limitations: no limitations, altered mental status and dementia History of Present Illness complaint: altered mental status, confusion and weakness Onset (ago): day(s) (1) Timing confirmed by: family member Severity: moderate Consistency of symptoms: constant Context: history of similar presentation Related Data Home Medications Medication Instructions Recorded Confirmed amlodipine 2.5 mg tablet 2.5 mg PO DAILY 08/09/22 10/26/22 simvastatin 80 mg tablet 40 mg PO DAILY 08/09/22 10/26/22 acetaminophen 500 mg tablet 500 mg PO Q6H PRN Pain 08/30/22 10/26/22 (Tylenol Extra Strength) multivitamin (Daily Multi-Vitamin 1 tablet PO DAILY 08/30/22 10/26/22 tablet) donepezil 5 mg tablet 5 mg PO HS 10/26/22 10/26/22 Allergies Allergy/AdvReac Type Severity Reaction Status Date / Time No Known Allergies Allergy Verified 10/26/22 18:18 Review of Systems Review of Systems: All systems reviewed & are unremarkable except as noted in HPI and below Constitutional: Constitutional: Reports no additional constitutional complaints Eyes: Eyes: Reports no additional eye complaints ENT: Reports system reviewed and no additional complaints, except as documented Cardiovascular: Cardiovascular: Reports no additional cardiovascular complaints Respiratory: Respiratory: Reports no additional respiratory complaints, Reports chest congestion and Reports dyspnea Gastrointestinal: Gastrointestinal: Reports no additional gastrointestinal complaints Musculoskeletal: Musculoskeletal: Reports no additional musculoskeletal complaints Integumentary/Breasts: Skin/Breast: Reports system reviewed and no additional complaints, except as docu Neurologic: Reports system reviewed and no additional complaints, except as documented and Reports confusion Psychiatric: Psychiatric: Reports no additional psychiatric complaints Endocrine: Endocrine: Reports no additional endocrine complaints Hematologic/Lymphatic: Hematologic/Lymphatic: Reports no additional hematologic/lymphatic complaints Allergic/Immunologic: Allergic/Immunologic: Reports no additional allergic/immunologic complaints [facility] Past Medical History Medical History (Updated 11/04/22 @ 15:48 by Keely Castro MD) Dementia with psychosis Pneumonia Social History Social History Smoking status: Former smoker Additional smoking assessment comments: unknown Alcohol intake: never Spiritual care concerns: No Exam Const: General: healthy appearing, no acute distress and well nourished Nutritional Appearance: well nourished Orientation/consciousness: patient oriented x3 Limitations: no limitations HENMT: Head: normal to inspection Ears: external ears normal, TM's normal bilaterally and EAC's normal Face/Nose/Sinus: Normal external nose present, Normal nares present, normal facial exam and sinuses nontender Face and sinus: normal facial exam and sinuses nontender Mouth: Yes Normal oral and palatal mucosa present and Yes moist mucous membranes Teeth and gingiva: dentition normal Throat: posterior oropharynx normal Eyes: Conjunctivae: conjunctivae normal Pupils: Equal, round and reactive pupils present EOM: EOMs intact bilaterally Neck: Neck: normal visual inspection, no lymphadenopathy and no meningeal signs Chest: Chest palpation & inspection: normal inspection of the chest Resp: Effort & Inspection: normal respiratory effort Auscultation: clear to auscultation bilaterally Cardio: Rate: regular rate Rhythm: regular rhythm GI: GI Palp: Yes Soft to palpation and No Tenderness to palpation present (GI) Auscultation: normal bowel sounds : General: Yes bladder normal to palpation and Yes no CVA tenderness
[2022-10-26 22:14] VITALS: BP 131/75; PULSE 85; RESP 18; TEMP 36.4; O2SAT 97
[2022-10-26 22:18] LABS: Strep Group A RT-PCR Not Detected (Negative)
[2022-10-26 22:25] LABS: Influenza A QL RT-PCR Negative (Negative); Influenza B QL RT-PCR Negative (Negative); SARS-CoV-2 RNA PCR Negative (Negative)
== END 2022-10-26 22:48 | disposition home or self-care (01) ==
PROVIDERS: Emergency Provider Emergency Medicine; PCP Emergency Medicine
DX: J18.9 Pneumonia, unspecified organism (principal); F03.90 Unspecified dementia, unspecified severity, without behavioral disturbance, psychotic disturbance, mood disturbance, and anxiety; Z87.891 Personal history of nicotine dependence; Z20.822 Contact with and (suspected) exposure to COVID-19
CPT/HCPCS: 36415; 70450; 71045; 80053; 81001; 82140; 82550; 83605; 84443; 84484; 85025; 87040; 87502; 87651; 93005; 96361; 96365; 99284; A9270; J0696; J7040; U0003; U0005